=== PATIENT | female | born 2000 | race Two or more races ===

== ENCOUNTER 2024-06-23 15:20 | Inpatient (IN) | payer MEDICAID ==
[~2024-06-23] VITALS: Ht 175.3 cm; Wt 102.0 kg
--- NOTE | 2024-06-23 15:49 | ED.PDOC ---
Musculoskeletal HPI Comments 24 year old female presents to the ED with chief complaint of arm pain, swelling, and redness. Patient reports that she has been experiencing right arm swelling, pain, and redness since yesterday, worsening over time and spreading up her arm. Patient relays that she had an episode of SOB yesterday in which she used her Epi-Pen, relieving it, but her swelling and redness persisted. Patient states she has an allergy to Penicillins. Patient notes she noticed small bite sevilla where the swelling is originating from. Patient denies any numbness, weakness, fever, chills, or chest pain. Chief Complaint: Upper Extremity Time Seen by MD: 15:44 Primary Care Provider: none Reviewed Notes: Nurses Notes, Medications, Allergies Allergies: Coded Allergies: Amoxicillin (Verified Allergy, Unknown, 06/23/24) Penicillins (Verified Allergy, Unknown, 06/23/24) Information Source: Patient Mode of Arrival: Wheelchair Location: Right Extremity Location: Arm Timing: Days Prehospital treatment: Accucheck, None Severity: Moderate Able to Move Extremity: Yes Bear Weight: Fully Pain: Severe Mechanism: Spontaneous Circumstances: Spontaneous Onset of Symptoms: Spontaneous Symptoms: Swelling, Pain, Erythema DVT Risk Factors: NONE Last Tetanus: Unknown Past Medical History PAST MEDICAL HISTORY: Denies Surgical History: Denies all surgeries COKE INSPECTOR History: No Pertinent COKE INSPECTOR History Family History Family History: Reviewed,noncontributory to illness Social History Smoker: Non-Smoker Alcohol: Denies ETOH Use Drugs: Denies Drug Use Lives In: Home Constitutional: denies: chills, diaphoresis, fatigue, fever, malaise, sweats, weakness, others EENTM: denies: blurred vision, double vision, ear bleeding, ear discharge, ear drainage, ear pain, ear ringing, eye pain, eye redness, hearing loss, mouth pain, mouth swelling, nasal discharge, nose bleeding, nose congestion, nose pain, photophobia, tearing, throat pain, throat swelling, voice changes, others Respiratory: denies: cough, hemoptysis, orthopnea, SOB at rest, shortness of breath, SOB with excertion, stridor, wheezing, others Cardiovascular: denies: chest pain, dizzy spells, diaphoresis, Dyspnea on exertion, edema, irregular heart beat, left arm pain, lightheadedness, palpitations, PND, syncope, others Gastrointestinal: denies: abdomen distended, abdominal pain, blood streaked bowels, constipated, diarrhea, dysphagia, difficulty swallowing, hematemesis, melena, nausea, poor appetite, poor fluid intake, rectal bleeding, rectal pain, vomiting, others Genitourinary: denies: abnormal vagina bleeding, burning, dyspareunia, dysuria, flank pain, frequency, hematuria, incontinence, pain, , vagina discharge, urgency, others Neurological: denies: dizziness, fainting, headache, left sided numbness, left sided weakness, numbness, paresthesia, pre-existing deficit, right sided numbness, right sided weakness, seizure, speech problems, tingling, tremors, weakness, others Musculoskeletal: denies: back pain, gout, joint pain, joint swelling, muscle pain, muscle stiffness, neck pain, others Integumetry: reports: others (Rt arm pain, swelling, and redness); denies: bruises, change in color, change in hair/nails, dryness, laceration, lesions, lumps, rash, wounds Allergic/Immunocompromised: denies: Difficulty Healing, Frequent Infections, Hives, Itching, others Hematologic/Lymphatic: denies: anemia, blood clots, easy bleeding, easy bruising, swollen glands, others Endocrine: denies: excessive hunger, excessive sweating, excessive thirst, excessive urination, flushing, intolerance to cold, intolerance to heat, unexplained weight gain, unexplained weight loss, others Psychiatric: denies: anxiety, bipolar disorder, depression, hopeless, panic disorder, schizophrenia, sleepless, suicidal, others All Other Systems: Reviewed and Negative Physical Exam General Appearance: No Apparent Distress, Normal HEENT: Normal ENT Inspection, PERRL/EOMI Neck: Full Range of Motion, Non-Tender, Normal, Normal Inspection Respiratory: Chest Non-Tender, Lungs Clear, No Accessory Muscle Use, No Respiratory Distress, Normal Breath Sounds Cardiovascular: No Edema, No JVD, No Murmur, No Gallop, Normal Peripheral Pulses, Regular Rate/Rhythm Breast Exam: Deferred Gastrointestinal: No Organomegaly, Non Tender, No Pulsatile Mass, Normal Bowel Sounds, Soft Genitalia: Deferred Pelvic: Deferred Rectal: Deferred Extremities: No calf tenderness, Normal capillary refill, Normal range of motion, No pedal edema, Other (Right arm tenderness, swelling, and erythema) Musculoskeletal : Apperance: Normal Neurologic: Alert, cell technician II-XII nml as Tested, No Motor Deficits, Normal Affect, Normal Mood, No Sensory Deficits Cerebellar Function: Normal Reflexes: Normal Skin: Dry, Normal Color, Warm Lymphatic: No Adenopathy Was a procedure done? Was a procedure done?: No Differential Diagnosis EXT Differential Diagnosis: Cellulitis, Sprain, Contusion, Strain X-Ray, Labs, Meds, VS Vital Signs Date Time Temp Pulse Resp B/P (MAP) Pulse Ox O2 Delivery O2 Flow Rate FiO2 06/23/24 15:37 98.0 85 17 124/67 (86) 98 Lab Test 06/23/24 16:09 Range/Units White Blood Count 10.1 4.4-10.8 10^3/uL Red Blood Count 4.87 4.0-5.20 10^6/uL Hemoglobin 13.5 12.2-16.2 g/dL Hematocrit 41.3 36.0-46.0 % Mean Corpuscular Volume 84.8 80.0-100.0 fL Mean Corpuscular Hemoglobin 27.8 L 28.0-32.0 pg Mean Corpuscular Hemoglobin Concent 32.8 32.0-36.0 g/dL Red Cell Distribution Width 15.3 H 11.8-14.3 % Platelet Count 410 140-450 10^3/uL Mean Platelet Volume 7.8 6.9-10.8 fL Neutrophils (%) (Auto) 77.0 37.0-80.0 % Lymphocytes (%) (Auto) 14.0 10.0-50.0 % Monocytes (%) (Auto) 5.6 0.0-12.0 % Eosinophils (%) (Auto) 3.1 0.0-7.0 % Basophils (%) (Auto) 0.3 0.0-2.0 % Neutrophils # (Auto) 7.8 1.6-8.6 10 ^3/uL Lymphocytes # (Auto) 1.4 0.4-5.4 10 ^3/uL Monocytes # (Auto) 0.6 0-1.3 10 ^3/uL Eosinophils # (Auto) 0.3 0-0.8 10 ^3/uL Basophils # (Auto) 0 0-0.2 10 ^3/uL Nucleated Red Blood Cells 0.0 % Sodium Level 140 136-145 mmol/L Potassium Level 4.0 3.5-5.1 mmol/L Chloride Level 107 98-107 mmol/L Carbon Dioxide Level 25 20-31 mmol/L Anion Gap 8 5-15 Blood Urea Nitrogen 5 L 9-23 mg/dL Creatinine 0.56 0.550-1.02 mg/dL Glomerular Filtration Rate Calc 132 >90 mL/min BUN/Creatinine Ratio 8.9 L 10.0-20.0 Serum Glucose 102 74-106 mg/dL Calcium Level 9.7 8.7-10.4 mg/dL Time of 1ST Reevaluation: 16:44 Reevaluation 1ST: Unchanged Patient Education/Counseling: Diagnosis, Treatment Family Education/Counseling: No Family Present Additional Information I reviewed the following notes from patient's past medical encounters: None The following tests were ordered, and results were reviewed by me: CBC, BMP I reviewed and agreed with the following test results read by other providers: None Additional Information was gathered from interviewing the following independent historians: None I discussed treatment and results with medical personnel. Departure 1 Departure Time of Disposition: 17:45 (Patient with impressive cellulitis of her right arm. We will empirically cover with antibiotics and that patient for further workup) Impression: Primary Impression: Cellulitis of right arm Disposition: ADMITTED INPATIENT Admit to: Med Surg Condition: Serious Critical Care Note Critical Care Time?: No Stability Stability form required: No Heart Score Heart Score: Heart Score Response (Comments) Value History N/A 0 EKG N/A 0 Age N/A 0 Risk Factors N/A 0 Troponin N/A 0 Total 0 I personally scribed for JANNA PATINO MD ([email or web address]) on 06/23/24 at 15:49. Electronically submitted by Sung Cote ([email or web address]). JANNA PATINO MD Jun 23, 2024 15:49
[2024-06-23 16:31] LABS: Basophils # (auto) 0 10 ^3/uL (0-0.2); Basophils % (auto) 0.3 % (0.0-2.0); Eosinophils # (auto) 0.3 10 ^3/uL (0-0.8); Eosinophils % (auto) 3.1 % (0.0-7.0); Hematocrit 41.3 % (36.0-46.0); Hemoglobin 13.5 g/dL (12.2-16.2); Lymphocytes # (auto) 1.4 10 ^3/uL (0.4-5.4); Mean Corpuscular Hemoglobin 27.8 pg (28.0-32.0); Mean Corpuscular Hgb Conc. 32.8 g/dL (32.0-36.0); Mean Corpuscular Volume 84.8 fL (80.0-100.0); Monocytes # (auto) 0.6 10 ^3/uL (0-1.3); Monocytes % (auto) 5.6 % (0.0-12.0); Neutrophils # (auto) 7.8 10 ^3/uL (1.6-8.6); Platelet Count (auto) 410 10^3/uL (140-450); Red Blood Cells 4.87 10^6/uL (4.0-5.20); Red Cell Distribution Width 15.3 % (11.8-14.3); White Blood Cell 10.1 10^3/uL (4.4-10.8)
[2024-06-23 16:37] LABS: Chloride 107 mmol/L (98-107); Sodium 140 mmol/L (136-145)
[2024-06-23 16:38] LABS: Anion Gap 8 (5-15); Carbon Dioxide 25 mmol/L (20-31)
[2024-06-23 16:39] LABS: Calcium 9.7 mg/dL (8.7-10.4)
[2024-06-23 16:43] LABS: BUN/Creatinine Ratio 8.9 (10.0-20.0); Glucose 102 mg/dL (74-106)
[2024-06-23 16:45] LABS: Blood Urea Nitrogen 5 mg/dL (9-23)
[2024-06-23 21:00] VITALS: PULSE 93; RESP 18; O2SAT 97
[2024-06-23] MEDS: SODIUM CHLORIDE 0.9% 1,000 ML IV ONE ×2 (21:08→22:00)
[2024-06-23] MEDS: MORPHINE SULFATE 4 MG/ML SYR/VIAL IV ONE (21:08)
[2024-06-23] MEDS: VANCOMYCIN 1GM/250ML KIT 200 ML IV ONE (21:30)
--- NOTE | 2024-06-23 21:54 | DVHHPRES ---
History of Present Illness Resident Creating Document: AMY ARECHIGA Reason for Visit: cellulitis History of Present Illness A 24 year old female presents to the emergency department with a chief complaint of right arm swelling, pain, and redness, which started on Sunday (06/22/24) at 12 a.m. The swelling has progressively worsened over time, spreading up her arm, because of that she used EPIpen. She stated mild fevers. She denies numbness, weakness, or chest pain. The patient reports a history of similar episodes in the past, which caused her distress. She believes the inflammation may be due to a tick or insect bite and noticed small bite sevilla at the site of swelling. S She denies shortness of breath, dizziness, or recent trauma. Allergies Amoxicillin Penicillins During her stay in the ER, she developed allergic reaction to vancomycin: redness in face and chest Past Surgical History: None Family History: None Smoke: No ALCOHOL: none Drugs: None Lives: with Family Domestic Violence: Neg Review of Systems Constitutional: Yes: Fever; No: Chills, Sweats, Weakness, Malaise, Other Eyes: No: Pain, Vision change, Conjunctivae inflammation, Eyelid inflammation, Other, Redness ENT: No: Ear pain, Ear discharge, Nose pain, Nose discharge, Nose congestion, Mouth pain, Mouth swelling, Throat pain, Throat swelling, Other Respiratory: No: Cough, Dry, Shortness of breath, SOB with excertion, Wheezing, Hemoptysis, Pleuritic Pain, Sputum, Wheezing, Other Cardiovascular: No: Chest Pain, Palpitations, Orthopnea, Paroxysmal Noc. Dyspnea, Edema, Lt Headedness, Other Gastrointestinal: No: Nausea, Vomiting, Abdominal Pain, Diarrhea, Constipation, Melena, Hematochezia, Other Genitourinary: No Dysuria, No Frequency, No Incontinence, No Hematuria, No Retention, No Other Musculoskeletal: No: other, neck pain, shoulder pain, arm pain, back pain, hand pain, leg pain, foot pain Skin: No: Rash, Lesions, Jaundice, Bruising, Other Neurological: No: Weakness, Numbness, Incoordination, Change in speech, Confusion, Seizures, Other Allergies: Coded Allergies: Amoxicillin (Verified Allergy, Unknown, 06/23/24) Penicillins (Verified Allergy, Unknown, 06/23/24) Vancomycin (Verified Allergy, Unknown, 06/24/24) Medications Current Medications Medications Dose Ordered Sig/Isela Route Start Time Stop Time Status Last Admin Dose Admin Clindamycin Phosphate 50 ml @ 50 mls/hr Q8HR IV 06/23/24 22:00 UNV Acetaminophen 650 mg Q6HR PO 06/24/24 00:00 UNV Ketorolac Tromethamine 15 mg Q6HR PRN IV 06/23/24 22:00 06/28/24 21:59 UNV Exam Vital Signs Vital Signs Date Time Temp Pulse Resp B/P (MAP) Pulse Ox O2 Delivery O2 Flow Rate FiO2 06/23/24 21:08 93 18 112/62 06/23/24 15:37 98.0 98 General Appearance: Alert, Oriented X3, Cooperative, mild distress HEENT: Atraumatic, PERRLA, EOMI, Mucous membr. moist/pink Respiratory: Clear to auscultation Cardiovascular: Regular rate, Normal S1, Normal S2, No murmurs Abdominal: Normal bowel sounds, Soft, No tenderness Extremities: Other (right arm edema, redness and tenderness, in the hand (dorsal) and forearm ) Labs/Xrays Labs Test 06/23/24 16:09 Range/Units White Blood Count 10.1 4.4-10.8 10^3/uL Red Blood Count 4.87 4.0-5.20 10^6/uL Hemoglobin 13.5 12.2-16.2 g/dL Hematocrit 41.3 36.0-46.0 % Mean Corpuscular Volume 84.8 80.0-100.0 fL Mean Corpuscular Hemoglobin 27.8 L 28.0-32.0 pg Mean Corpuscular Hemoglobin Concent 32.8 32.0-36.0 g/dL Red Cell Distribution Width 15.3 H 11.8-14.3 % Platelet Count 410 140-450 10^3/uL Mean Platelet Volume 7.8 6.9-10.8 fL Neutrophils (%) (Auto) 77.0 37.0-80.0 % Lymphocytes (%) (Auto) 14.0 10.0-50.0 % Monocytes (%) (Auto) 5.6 0.0-12.0 % Eosinophils (%) (Auto) 3.1 0.0-7.0 % Basophils (%) (Auto) 0.3 0.0-2.0 % Neutrophils # (Auto) 7.8 1.6-8.6 10 ^3/uL Lymphocytes # (Auto) 1.4 0.4-5.4 10 ^3/uL Monocytes # (Auto) 0.6 0-1.3 10 ^3/uL Eosinophils # (Auto) 0.3 0-0.8 10 ^3/uL Basophils # (Auto) 0 0-0.2 10 ^3/uL Nucleated Red Blood Cells 0.0 % Sodium Level 140 136-145 mmol/L Potassium Level 4.0 3.5-5.1 mmol/L Chloride Level 107 98-107 mmol/L Carbon Dioxide Level 25 20-31 mmol/L Anion Gap 8 5-15 Blood Urea Nitrogen 5 L 9-23 mg/dL Creatinine 0.56 0.550-1.02 mg/dL Glomerular Filtration Rate Calc 132 >90 mL/min BUN/Creatinine Ratio 8.9 L 10.0-20.0 Serum Glucose 102 74-106 mg/dL Calcium Level 9.7 8.7-10.4 mg/dL Assessment/Plan Assessment/Plan #cellulitis in R arm #insect bite #rule out abscess #rule out DVT #Allergic reaction to vancomycin Plan Admit med/surg CT scan and US on R upper ext DC vancomycin Start clindamycin and Levaquin IV Fluids: bolus 2 LT - 60 cc/h Benadryl IV Pain management Case discussed with Dr Paige Time spent on care 23 min Plan discussed with: Patient, Other (rn) My Orders Orders - AMY ARECHIGA RESIDENT Procedure Category Date Status Time Admit ADMIT 06/23/24 Transmitted 21:25 Urinalysis LAB 06/23/24 Logged 21:26 Drug Screen LAB 06/23/24 Logged 21:26 Test, Urine LAB 06/23/24 Logged 21:26 Thyroid Stimulating LAB 06/23/24 Logged Hormone 21:47 Clindamycin 600mg Iv PHA 06/23/24 Logged (Cleocin Iv) 22:00 Sodium Chloride 0.9% PHA 06/23/24 Logged 22:00 Acetaminophen Tablet PHA 06/24/24 Logged (Tylenol Tablet) 00:00 Ketorolac Injection PHA 06/23/24 Logged (Toradol Injection) 22:00 Date of Service: Jun 23, 2024 Billing Provider: NAZARIO PAIGE MD Common Visit Codes: 94647-[id number] INP/OBS CARE (MOD) AMY ARECHIGA RESIDENT Jun 23, 2024 21:54 NAZARIO PAIGE MD Jun 25, 2024 01:24
[2024-06-23] MEDS ORDERED: levoFLOXacin 500MG 100 ML IV SCH (22:45)
[2024-06-23] MEDS: diphenhdrAMINE HCL 50 MG/1 ML VL IV PRN (22:53)
[2024-06-23] MEDS: SODIUM CHLORIDE 0.9% 2,000 ML IV ONE (22:54)
--- NOTE | 2024-06-23 23:44 | DVH ---
RIGHT Upper Extremity Venous Duplex Clinical History: RT ARM SWELLING Comparison: None Technique: Duplex Doppler evaluation of the venous system of the RIGHT lower neck and upper extremity including color Doppler and spectral/pulsed waveform analysis was performed. Findings: The internal jugular vein demonstrates appropriate compressibility and waveform variability . The subclavian vein is patent on color Doppler evaluation without intraluminal thrombus and [place] waveform variability . The visualized portion of the brachiocephalic vein is patent on color Doppler evaluation without intr aluminal thrombus and demonstrates waveform variability . The axillary vein demonstrates appropriate compressibility and waveform variability . The brachial veins demonstrate appropriate compressibility and patency on Doppler evaluation. The basilic vein demonstrates appropriate compressibility and patency on Doppler evaluation. The cephalic vein demonstrates appropriate compressibility and patency on Doppler evaluation. Impression: No venous thrombus identified in RIGHT upper extremity vessels.
[2024-06-24] MEDS ORDERED: ACETAMINOPHEN 325 MG TAB PO SCH
[2024-06-24] MEDS: CLINDAMYCIN 600MG IV 50 ML IV SCH (01:02)
[2024-06-24 02:22] LABS: Urine Bacteria None Seen /hpf (None Seen)
[2024-06-24 02:36] LABS: Urine Blood TRACE /uL (Negative); Urine Clarity Clear (Clear); Urine Color Colorless (Yellow); Urine Protein, UAD Negative (Negative); Urine Specific Gravity 1.009 (1.001-1.035); Urine Squamous Epithelial Cell FEW /hpf (<5); Urine Urobilinogen Normal (Negative); Urine WBC 1 /HPF (0-5)
[2024-06-24 02:52] LABS: Amphetamine Screen, Urine Neg (NEGATIVE)
[2024-06-24 02:53] LABS: Barbiturate Scree,Urine Neg (NEGATIVE); Benzodiazephine Screen, Urine Neg (NEGATIVE); Cocaine Screen, Urine Neg (NEGATIVE); Opiate Scree,Urine Neg (NEGATIVE)
[2024-06-24] MEDS: KETOROLAC TROMETH 30 MG/ML 1ML VIAL IV PRN (03:05)
[2024-06-24 03:32] LABS: Cannabinoid Screen, Urine Neg (NEGATIVE); Phencyclidine Screen, Urine Neg (NEGATIVE)
[2024-06-24 05:00] VITALS: BP 103/55; PULSE 73; RESP 13; TEMP 97.6; O2SAT 95
[2024-06-24] MEDS: ACETAMINOPHEN 325 MG TAB PO SCH (06:04)
[2024-06-24 08:00] VITALS: PULSE 64; RESP 14; O2SAT 99
[2024-06-24 09:00] VITALS: BP 92/40; PULSE 64; RESP 14; TEMP 97.8; O2SAT 99
[2024-06-24] MEDS ORDERED: levoFLOXacin 500MG 100 ML IV SCH ×2 (10:00)
[2024-06-24 10:45] LABS: Basophils # (auto) 0 10 ^3/uL (0-0.2); Basophils % (auto) 0.2 % (0.0-2.0); Eosinophils # (auto) 0.6 10 ^3/uL (0-0.8); Eosinophils % (auto) 7.1 % (0.0-7.0); Hematocrit 41.1 % (36.0-46.0); Hemoglobin 13.3 g/dL (12.2-16.2); Lymphocytes # (auto) 2.4 10 ^3/uL (0.4-5.4); Lymphocytes % (auto) 27.8 % (10.0-50.0); Mean Corpuscular Hemoglobin 27.6 pg (28.0-32.0); Mean Corpuscular Hgb Conc. 32.2 g/dL (32.0-36.0); Mean Corpuscular Volume 85.7 fL (80.0-100.0); Monocytes # (auto) 0.4 10 ^3/uL (0-1.3); Monocytes % (auto) 4.3 % (0.0-12.0); Neutrophils # (auto) 5.3 10 ^3/uL (1.6-8.6); Neutrophils % (auto) 60.6 % (37.0-80.0); Platelet Count (auto) 372 10^3/uL (140-450); Red Cell Distribution Width 15.6 % (11.8-14.3); White Blood Cell 8.8 10^3/uL (4.4-10.8)
[2024-06-24] MEDS: SODIUM CHLORIDE 0.9% 1,000 ML IV ONE (11:30)
[2024-06-24] MEDS ORDERED: SODIUM CHLORIDE 0.9% 1,000 ML IV SCH (11:30)
[2024-06-24 13:00] VITALS: BP 105/55; PULSE 72; RESP 16; TEMP 98.3; O2SAT 98
[2024-06-24] MEDS ORDERED: CLIN1CAP70 PO (14:59)
--- NOTE | 2024-06-24 15:23 | DVHDSRES ---
Discharge Summary Date of Admission Resident Creating Document: AMY ARECHIGA RESIDENT Jun 23, 2024 at 21:25 Date of Discharge: Jun 24, 2024 Admitting Diagnosis Right upper arm and forearm cellulitis Labs/Diagnostic Data: Laboratory Results Test 06/24/24 10:03 06/24/24 01:50 06/23/24 16:09 White Blood Count 8.8 10^3/uL (4.4-10.8) Red Blood Count 4.80 10^6/uL (4.0-5.20) Hemoglobin 13.3 g/dL (12.2-16.2) Hematocrit 41.1 % (36.0-46.0) Mean Corpuscular Volume 85.7 fL (80.0-100.0) Mean Corpuscular Hemoglobin 27.6 pg (28.0-32.0) Mean Corpuscular Hemoglobin Concent 32.2 g/dL (32.0-36.0) Red Cell Distribution Width 15.6 % (11.8-14.3) Platelet Count 372 10^3/uL (140-450) Mean Platelet Volume 7.9 fL (6.9-10.8) Neutrophils (%) (Auto) 60.6 % (37.0-80.0) Lymphocytes (%) (Auto) 27.8 % (10.0-50.0) Monocytes (%) (Auto) 4.3 % (0.0-12.0) Eosinophils (%) (Auto) 7.1 % (0.0-7.0) Basophils (%) (Auto) 0.2 % (0.0-2.0) Neutrophils # (Auto) 5.3 10 ^3/uL (1.6-8.6) Lymphocytes # (Auto) 2.4 10 ^3/uL (0.4-5.4) Monocytes # (Auto) 0.4 10 ^3/uL (0-1.3) Eosinophils # (Auto) 0.6 10 ^3/uL (0-0.8) Basophils # (Auto) 0 10 ^3/uL (0-0.2) Nucleated Red Blood Cells 0.0 % Urine Color Colorless (Yellow) Urine Clarity Clear (Clear) Urine pH 7.0 (5.0-9.0) Urine Specific [place] 1.009 (1.001-1.035) Urine Protein Negative (Negative) Urine Ketones Negative (Negative) Urine Blood Trace /uL (Negative) Urine Nitrite Negative (Negative) Urine Bilirubin Negative (Negative) Urine Urobilinogen Normal mg/dL (Negative) Urine Leukocyte Esterase Negative /uL (Negative) Urine RBC 1 /hpf (0 - 4) Urine Microscopic WBC 1 /HPF (0-5) Urine Squamous Epithelial Cells Few /hpf (<5) Urine Bacteria None seen /hpf (None Seen) Urine Glucose Normal mg/dL (Normal) Urine Test Negative (Negative) Urine Opiates Screen Neg (NEGATIVE) Urine Fentanyl Screen Neg (NEGATIVE) Urine Barbiturates Screen Neg (NEGATIVE) Urine Phencyclidine Screen Neg (NEGATIVE) Urine Amphetamines Screen Neg (NEGATIVE) Urine Benzodiazepines Screen Neg (NEGATIVE) Urine Cocaine Screen Neg (NEGATIVE) Urine Cannabinoids Screen Neg (NEGATIVE) Sodium Level 140 mmol/L (136-145) Potassium Level 4.0 mmol/L (3.5-5.1) Chloride Level 107 mmol/L (98-107) Carbon Dioxide Level 25 mmol/L (20-31) Anion Gap 8 (5-15) Blood Urea Nitrogen 5 mg/dL (9-23) Creatinine 0.56 mg/dL (0.550-1.02) Glomerular Filtration Rate Calc 132 mL/min (>90) BUN/Creatinine Ratio 8.9 (10.0-20.0) Serum Glucose 102 mg/dL (74-106) Calcium Level 9.7 mg/dL (8.7-10.4) Thyroid Stimulating Hormone (TSH) 1.37 uIU/mL (0.55-4.78) Other Laboratory Tests 06/24/24 10:03 06/23/24 16:09 Brief Hx & Hospital Course: HPI-patient is 24 year old female presents to the emergency department with a chief complaint of right arm swelling, pain, and redness, which started on Sunday (06/22/24) at 12 a.m. The swelling has progressively worsened over time, spreading up her arm, because of that she used EPIpen. She stated mild fevers. She denies numbness, weakness, or chest pain.The patient reports a history of similar episodes in the past, which caused her distress. She believes the inflammation may be due to a tick or insect bite and noticed small bite sevilla at the site of swelling. S She denies shortness of breath, dizziness, or recent trauma. Hospital course-patient was admitted at the hospital due to right upper arm and forearm redness, swelling, pain. Patient was found to have cellulitis of the right forearm and arm. Doppler study negative for DVT. Patient had reaction to vancomycin. Pancreas was switched to clindamycin. Patient responded well with the conservative management with IV fluid and clindamycin. Patient is being discharged home with clindamycin 300 mg every 6 hours for 7 days. Patient was hemodynamically stable on discharge, vitals stable. Patient was advised to follow up with the primary care physician in 1 week. Patient's meds were sent to the pharmacy electronically. Patient was counseled about the importance of med compliance. Assessment and diagnosis Cellulitis of the right forearm and right arm Insect bite History of anaphylaxis reaction Obesity No sepsis Plan and recommendation Please follow up with your primary care physician in 1 week Clindamycin 300 mg by mouth every 6 hours for 7 days Patient was counseled about obesity, weight reduction, low-fat diet, physical activity Operations or Procedures [place] [id number] Ph: [phone] DIAGNOSTIC IMAGING Diagnostic Imaging Report : [id number] Signed PATIENT: CARMEN MACARIOCCT: [id number] UNIT: [id number] : 2000 LOC: OVERFLOW ROOM / BED: [address] [place] [address] AGE / SEX: 24 / F ADM STATUS: ADM IN SERVICE 2240 ORDERING PHYSICIAN: AMY ARECHIGA RESIDENT PROCEDURE(s): RUDVT - Rt Upper DVT REASON: RT ARM SWELLING ORDER NUMBER(s): [id number], ACCESSION NUMBER(s): [id number] RIGHT Upper Extremity Venous Duplex Clinical History: RT ARM SWELLING Comparison: None Technique: Duplex Doppler evaluation of the venous system of the RIGHT lower neck and upper extremity including color Doppler and spectral/pulsed waveform analysis was performed. Findings: The internal jugular vein demonstrates appropriate compressibility and waveform variability . The subclavian vein is patent on color Doppler evaluation without intraluminal thrombus and demonstrates waveform variability . The visualized portion of the brachiocephalic vein is patent on color Doppler evaluation without intraluminal thrombus and demonstrates waveform variability . The axillary vein demonstrates appropriate compressibility and waveform variability . The brachial veins demonstrate appropriate compressibility and patency on Doppler evaluation. The basilic vein demonstrates appropriate compressibility and patency on Doppler evaluation. The cephalic vein demonstrates appropriate compressibility and patency on Doppler evaluation. Impression: No venous thrombus identified in RIGHT upper extremity vessels. ATED BY: QUAN LEES MD DICTATED DATE/TIME: 06/23/242340 SIGNED BY: QUAN LEES MD SIGNED DATE/TIME: 06/23/242340 CC: Condition at Discharge: Stable Final Diagnosis/Problems List Cellulitis of the right forearm and right arm Insect bite History of anaphylaxis reaction Obesity No sepsis Discharge Disposition: Home Discharge Instruct/Medications Diet: Regular Activity: No Restrictions, As Tolerated Follow Up/Referral: Please follow up with your primary care physician in 1 week Medications: Clindamycin 300 mg by mouth every 6 hours for 7 days Discharge Statement: "Patient was advised to return to the ER or call 911 if any headaches, dizziness, shortness of breath, chest pain, abdominal pain, bleeding, fevers, or worsening of medical condition. Patient was counseled about treatment plan, medications, possible side effects, patientverbalized understanding. All questions were answered to the best of my ability. This discharge took greater then 30 minutes in planning, reviewing documentation, counseling the patient, and discussing with other team members." ASSESSMENT ASSESSMENT Assessment Cellulitis of the right forearm and right arm Insect bite History of anaphylaxis reaction Obesity No sepsis MITESH TONY RESIDENT Jun 24, 2024 15:23
[2024-06-25] MEDS ORDERED: levoFLOXacin 500MG 100 ML IV SCH (04:00)
== END 2024-06-24 17:15 | disposition home or self-care (01) | DRG 383 ==
LOC: ER 15:20 → OVERFLOW 21:25 → EAST 06-24 02:30
PROVIDERS: ADMIT Student in an Organized Health Care Education/Training Program; ATTEND Student in an Organized Health Care Education/Training Program
DX: L03.113 Cellulitis of right upper limb (principal); E66.9 Obesity, unspecified; S60.561A Insect bite (nonvenomous) of right hand, initial encounter; T36.8X5A Adverse effect of other systemic antibiotics, initial encounter; Z88.0 Allergy status to penicillin; Z79.899 Other long term (current) drug therapy; W57.XXXA Bitten or stung by nonvenomous insect and other nonvenomous arthropods, initial encounter; Y93.89 Activity, other specified; Y92.89 Other specified places as the place of occurrence of the external cause; Y99.8 Other external cause status; Z68.30 Body mass index [BMI] 30.0-30.9, adult
CPT/HCPCS: 36415; 80048; 80307; 81001; 81025; 84443; 85025; 93971; 96365; 96375; G0378; J1885; J3490